=== PATIENT | male | born 1990 | race Caucasian/White ===

== ENCOUNTER 2023-05-24 04:05 | Emergency (ER) | payer OTHER ==
[~2023-05-24] VITALS: Ht 152.4 cm; Wt 81.6 kg
[2023-05-24 04:31] VITALS: BP 137/99; PULSE 82; RESP 18; TEMP 98.1; O2SAT 96
[2023-05-24] MEDS: NACL 0.9% 1,000 ML IV ONE (04:45)
[2023-05-24] MEDS: ONDANSETRON 4 MG/2 ML VIAL IVP ONE (04:52)
[2023-05-24 05:10] LABS: BASOPHILS % (AUTO) 0.4 % (0.0-2.0); EOSINOPHILS % (AUTO) 0.3 % (0.0-4.0); HEMATOCRIT 47.3 % (36-52); HEMOGLOBIN 16.6 g/dL (12.0-18.0); LYMPHOCYTES # (AUTO) 1.5 K/uL (2.0-11.5); LYMPHOCYTES % (AUTO) 27.1 % (20.5-51.1); MEAN CORPUSCULAR HEMOGLOBIN 30 pg (27-31); MEAN CORPUSCULAR HGB CONC 35 g/dL (33-37); MEAN CORPUSCULAR VOLUME 85.7 fL (80-94); MONOCYTES # (AUTO) 0.3 K/uL (0.8-1.0); NEUTROPHILS # (AUTO) 3.7 K/uL (1.8-7.7); NEUTROPHILS % (AUTO) 67.2 % (42.2-75.2); PLATELET COUNT (AUTO) 211 K/uL (140-450); RED BLOOD CELL COUNT(AUTO) 5.51 MIL/uL (4.20-6.10); RED CELL DISTRIBUTION WIDTH 13.2 % (11.6-13.7); WHITE BLOOD COUNT (AUTO) 5.6 K/uL (4.8-10.8)
[2023-05-24 05:24] LABS: ALBUMIN 4.5 g/dL (3.4-5.0); ANION GAP 11.6 (8-16); CALCIUM 8.9 mg/dL (8.5-10.1); CARBON DIOXIDE 29.1 mmol/L (21-32); CREATININE 0.8 mg/dL (0.6-1.3); POTASSIUM 3.7 mmol/L (3.5-5.1); TOTAL BILIRUBIN 0.2 mg/dL (0.0-1.0); TOTAL PROTEIN, SERUM 9.5 g/dL (6.4-8.2)
[2023-05-24 05:25] VITALS: RESP 17
[2023-05-24] MEDS ORDERED: FAMO-90 PO (06:35)
[2023-05-24] MEDS ORDERED: ONDA-188 PO (06:35)
[2023-05-24] MEDS ORDERED: IBUP-2230 PO (06:35)
[2023-05-24 07:40] VITALS: BP 129/74; PULSE 89; O2SAT 99
== END 2023-05-24 07:40 | disposition home or self-care (01) ==
LOC: MED 04:05
DX: F10.129 Alcohol abuse with intoxication, unspecified (principal); Z79.899 Other long term (current) drug therapy; Y90.9 Presence of alcohol in blood, level not specified
CPT/HCPCS: 80053; 83690; 85025; 93005; 96361; 96374; 99284; G0482; J2405; J7030